=== PATIENT | female | born 1970 ===

== ENCOUNTER 2016-09-02 20:09 | Emergency (ER) | payer BC ==
[2016-09-02 20:50] VITALS: RESP 16; TEMP 98.2
[2016-09-02 21:56] LABS: PARTIAL THROMBOPLASTIN TIME 28.8 SECONDS (23.3-32.5)
[2016-09-02 22:01] LABS: ALB/GLOB RATIO 1.5 (1.0-2.1); ALKALINE PHOSPHATASE 66 U/L (38-126); ALT/SGPT 36 U/L (9-52); AST/SGOT 34 U/L (14-36); BILIRUBIN,TOTAL 0.5 mg/dl (0.2-1.3); BLOOD UREA NITROGEN 11 mg/dl (7-17); CALCIUM 9.2 mg/dL (8.4-10.2); CARBON DIOXIDE 26 mmol/L (22-30); CHLORIDE 102 mmol/L (98-107); GFR AFRICAN-AMERICAN > 60; GLUCOSE,RANDOM 84 mg/dL (65-105); SODIUM 138 mmol/l (132-148); TOTAL PROTEIN 7.9 G/DL (6.3-8.2)
[2016-09-02 22:07] LABS: BASO % 0.5 % (0.0-2.0); EOS # 0.1 K/uL (0.0-0.7); HEMATOCRIT 39.1 % (34.0-47.0); LYMPH % 33.9 % (20.0-40.0); MEAN CELL VOLUME 85.9 fl (81.0-99.0); MEAN CORPUSCULAR HEMOGLOBIN 28.3 pg (27.0-31.0); MEAN PLATELET VOLUME 9.4 fl (7.2-11.7); MONO # 0.5 K/uL (0.0-0.8); MONO % 7.9 % (0.0-10.0); NEUT # 3.3 K/uL (1.8-7.0); NEUT % 56.7 % (50.0-75.0); NRBC % 0.1 % (0.0-0.0); RED CELL DISTRIBUTION WIDTH 13.3 % (11.5-14.5); WHITE BLOOD COUNT 5.8 K/uL (4.8-10.8)
--- NOTE | 2016-09-02 22:37 | ED PDOC ---
HPI: Chest Pain Time Seen by Provider: 09/02/16 21:01 Chief Complaint (Nursing): Chest Pain Chief Complaint (Provider): Chest Pain History Per: Patient History/Exam Limitations: no limitations Onset/Duration Of Symptoms: Days (ongoing for 1 day), Intermittent Episodes Current Symptoms Are (Timing): Still Present Severity: Moderate Associated Symptoms: Dyspnea, Other (lower extremity swelling, back pain; denies vomiting, diarrhea, a fever, or cough). denies: Nausea Additional Complaint(s): Felicia Mejia is a 46 year old female, with no pertinent past medical history, who presents to the emergency department for the evaluation of intermittent, anterior chest pain, radiating to her posterior mid-back, ongoing for 1 day. Patient was worked up in the past with stress tests that came back normal. Associated lower extremity leg swelling and shortness of breath are currently present. Denies nausea, vomiting, diarrhea, a fever, or a cough. PMD: Terry Hernandez Past Medical History Reviewed: Historical Data, Nursing Documentation, Vital Signs Vital Signs: Last Vital Signs Temp 98.2 F 09/02/16 20:46 Pulse 75 09/03/16 00:00 Resp 16 09/03/16 00:00 BP 125/80 09/03/16 00:00 Pulse Ox 99 09/03/16 03:36 - Medical History PMH: Hepatitis (C) - Surgical History Surgical History: No Surg Hx - Family History Family History: States: No Known Family Hx - Social History Current smoker - smoking cessation education provided: No Ex-Smoker (has not smoked in the last 12 months): No Alcohol: None Drugs: Denies - Allergies Allergies/Adverse Reactions: Allergies Allergy/AdvReac Type Severity Reaction Status Date / Time No Known Allergies Allergy Verified 09/02/16 20:45 Review of Systems ROS Statement: Except As Marked, All Systems Reviewed And Found Negative Constitutional: Negative for: Fever Cardiovascular: Positive for: Chest Pain, Edema (lower extremity leg swelling) Respiratory: Positive for: Shortness of Breath. Negative for: Cough Gastrointestinal: Negative for: Nausea, Vomiting, Diarrhea Physical Exam - Reviewed Nursing Documentation Reviewed: Yes Vital Signs Reviewed: Yes - Physical Exam Appears: Positive for: Non-toxic, No Acute Distress Head Exam: Positive for: ATRAUMATIC, NORMOCEPHALIC Skin: Positive for: Normal Color, Warm, Dry Cardiovascular/Chest: Positive for: Regular Rate, Rhythm. Negative for: Murmur Respiratory: Positive for: Normal Breath Sounds. Negative for: Respiratory Distress Gastrointestinal/Abdominal: Positive for: Normal Exam, Soft. Negative for: Tenderness Back: Positive for: Normal Inspection. Negative for: L CVA Tenderness, R CVA Tenderness Extremity: Positive for: Normal ROM, Pedal Edema. Negative for: Tenderness Neurologic/Psych: Positive for: Alert, Oriented - Laboratory Results Result Diagrams: 09/02/16 21:33 09/02/16 21:33 - ECG O2 Sat by Pulse Oximetry: 99 (RA) Pulse Ox Interpretation: Normal Medical Decision Making Medical Decision Makin:01 Initial Impression: 46 year old female with chest pain and pedal edema Initial Plan: * Chest X-Ray * EKG * CBC * CMP * PT/PTT * BNP * Troponin I * Urine Dip * Urine * Urinalysis * Reevaluation Labs reviewed show no clinically significant abnormalities Chest Xray NAD Patient reports feeling well and is requesting to eat Dx Atypical Chest Pain Stable Pt advised to f/u with PCP in 2 days Scribe Attestation: Documented by Chris Espinoza, acting as a scribe for Nicanor Renteria MD. Provider Scribe Attestation: All medical record entries made by the Scribe were at my direction and personally dictated by me. I have reviewed the chart and agree that the record accurately reflects my personal performance of the history, physical exam, medical decision making, and the department course for this patient. I have also personally directed, reviewed, and agree with the discharge instructions and disposition. Disposition - Clinical Impression Clinical Impression: Atypical chest pain - Patient ED Disposition Is Patient to be Admitted: No Counseled Patient/Family Regarding: Studies Performed, Diagnosis, Need For Followup - Disposition Referrals: Terry Hernandez MD [Staff Provider] - Disposition: Routine/Home Disposition Time: 23:00 Condition: STABLE Instructions: Noncardiac Chest Pain (ED) Print Language: ISRAELI
[2016-09-02 22:42] LABS: RBC URINE 2 /hpf (0-3); URINE BACTERIA RARE (<OCC); URINE BILIRUBIN NEGATIVE (NEGATIVE); URINE BLOOD NEGATIVE (NEGATIVE); URINE COLOR YELLOW (YELLOW); URINE GLUCOSE (UA) NEG (Normal); URINE KETONE NEGATIVE (NEGATIVE); URINE LEUKOCYTE ESTERASE NEG Leu/uL (Negative); URINE PROTEIN NEGATIVE (NEGATIVE); URINE UROBILINOGEN 0.2-1.0 mg/dL (0.2-1.0); WBC URINE 2 /hpf (0-5)
[2016-09-03] VITALS: BP 125/80; PULSE 75
[2016-09-03 03:37] VITALS: O2SAT 99
--- NOTE | 2016-09-03 08:36 | RAD ---
HISTORY: chest pain COMPARISON: None available. TECHNIQUE: Chest PA and lateral FINDINGS: LUNGS: No focal consolidation. Please note that chest x-ray has limited sensitivity for the detection of pulmonary masses. PLEURA: No significant pleural effusion identified. No definite pneumothorax . CARDIOVASCULAR: The cardiomediastinal silhouette appears within normal limits of size. OSSEOUS STRUCTURES: No acute osseous abnormality identified. VISUALIZED UPPER ABDOMEN: Unremarkable. OTHER FINDINGS: None. IMPRESSION: No focal consolidation, significant pleural effusion, or definite pneumothorax identified.
--- NOTE | 2016-09-03 13:25 | CARD ---
APPROVED REPORT EKG Measurement Heart [id number] HI [id number] <Conclusion> Sinus bradycardia Otherwise normal ECG
== END 2016-09-03 00:01 | disposition home or self-care (01) ==
LOC: H.ER 20:09
DX: R07.9 Chest pain, unspecified (principal); R60.0 Localized edema; Z87.891 Personal history of nicotine dependence